=== PATIENT | female | born 1990 | race Hispanic/Latino ===

== ENCOUNTER 2022-09-23 20:43 | Emergency (ER) | payer OTHER ==
[~2022-09-23] VITALS: Ht 162.6 cm; Wt 83.9 kg
[2022-09-23 21:19] LABS: BASOPHILS % 0.3 % (0.0-1.0); EOSINOPHILS # (AUTO) 0.2 (0.0-0.4); EOSINOPHILS % 2.1 % (0.0-6.0); HEMATOCRIT 39.5 % (34.2-44.1); HEMOGLOBIN 12.8 g/dL (12.0-16.0); LYMPHOCYTES # (AUTO) 1.7 (1.0-3.2); LYMPHOCYTES % 23.3 % (18.0-39.1); MEAN CORPUSCULAR HEMOGLOBIN 28.4 pg (28-32); MEAN CORPUSCULAR HGB CONC 32.4 g/dL (31-35); MEAN CORPUSCULAR VOLUME 87.8 fL (81-99); MONOCYTES # (AUTO) 0.7 (0.2-0.8); MONOCYTES % 8.8 % (4.4-11.3); NEUTROPHILS # (AUTO) 4.9 (2.1-6.9); NEUTROPHILS % 65.1 % (38.7-80.0); PLATELET COUNT 212 x10e3/uL (140-360)
[2022-09-23 21:37] LABS: ALBUMIN 3.9 g/dL (3.5-5.0); ALBUMIN/GLOBULIN RATIO 1.2 (0.8-2.0); ANION GAP 12.9 mmol/L (8-16); CALCIUM 9.1 mg/dL (8.4-10.2); CREATININE, SERUM 0.74 mg/dL (0.57-1.11); POTASSIUM 3.9 mmol/L (3.5-5.1)
[2022-09-23 21:54] LABS: HCG,QUANTITATIVE 6382.93 mIU/mL (0-10)
[2022-09-24 00:23] VITALS: BP 118/76
== END 2022-09-24 00:28 | disposition home or self-care (01) ==
LOC: ER 20:50
DX: O20.0 Threatened abortion (principal); E16.2 Hypoglycemia, unspecified; J45.909 Unspecified asthma, uncomplicated
CPT/HCPCS: 36415; 76801; 80053; 84702; 85025; 86850; 86900; 99283